=== PATIENT | female | born 1935 | race Caucasian/White ===

== ENCOUNTER 2023-11-29 16:11 | Emergency (ER) | payer SELFPAY ==
[2023-06-18 16:56] VITALS: BMI 18.7
[2023-11-29 16:14] VITALS: BP 171/89; PULSE 82; RESP 20; TEMP 36.7; O2SAT 99; BMI 20.9
--- NOTE | 2023-11-29 16:18 | ED.GENADULT ---
HPI - General Adult General Chief complaint: Trauma Stated complaint: GLF,hit head on eliquis Time Seen by Provider: 11/29/23 16:17 Source: patient, family and EMS Mode of arrival: EMS Limitations: no limitations History of Present Illness HPI narrative: Patient is an 88-year-old female. She is on anticoagulation. She arrived for evaluation of a fall and a head injury. Patient stated that she was taking a step backwards and she did not realize that there was an extra step there and so she fell backwards and hit her head. No loss of consciousness. She did sustain a wound her head that was covered by EMS. She reports right-sided paraspinal neck pain but no midline pain. She did not arrive in a C-collar on a backboard. No hip pain. She is discomfort to her right thumb. No shoulder pain. No chest, abdomen discomfort or shortness of breath. Related Data Allergies Allergy/AdvReac Type Severity Reaction Status Date / Time No Known Drug Allergies Allergy Verified 11/29/23 17:20 Review of Systems Review of Systems ROS Unobtainable: All systems reviewed & are unremarkable except as noted in HPI and below Exam Initial Vital Signs Initial Vital Signs: Vital Signs Temperature 98.1 F 11/29/23 16:14 Pulse Rate 82 11/29/23 16:14 Respiratory Rate 20 11/29/23 16:14 Blood Pressure 171/89 H 11/29/23 16:14 Pulse Oximetry 99 11/29/23 16:14 Oxygen Delivery Method Room Air 11/29/23 16:14 [facility] Head: laceration (2 cm scalp laceration right occipital region) Face and sinus: normal facial exam Chest Chest: No crepitus and No tenderness Resp Effort & Inspection: normal respiratory effort Auscultation: clear to auscultation bilaterally Cardio Rate: regular rate Rhythm: regular rhythm GI Inspection: normal to inspection and non-distended Back/Spine/Pelvis Cervical Spine: No cervical spinal tenderness Neuro General: patient alert, patient awake, patient oriented x3 and moves all extremities Extrem Other: Discomfort with palpation of the right thumb with bruising around the area. Pelvis stable. Procedures Laceration Repair Laceration 1: Site: scalp Side (If applicable): right Size (cm): 2 Description: stellate Depth: simple, single layer Local Anesthetic: lidocaine 1% and with epi Amount of anesthesia used (mL): 6 Pre-repair: wound explored and irrigated extensively Skin layer closed with: nylon Skin layer suture size: 3-0 Number of sutures: 4 Technique: simple, interrupted Course Orders Ordered: ED Orders 11/29/23 16:17 CT cervical spine wo con Stat CT head/brain wo con Stat XR hand RT min 3V Stat Vital Signs Vital signs: Vital Signs - 8 hr 11/29/23 16:14 11/29/23 16:22 11/29/23 16:34 Temperature 98.1 F Temperature [1612] 98.1 F Pulse Rate 82 74 Pulse Rate [1612] 78 Respiratory Rate 20 14 Respiratory Rate [1612] 16 Blood Pressure 171/89 H Blood Pressure [1612] 171/89 H Pulse Oximetry 99 98 Pulse Oximetry [1612] 98 Oxygen Delivery Method Room Air Room Air Oxygen Delivery Method [1612] Room Air 11/29/23 16:39 11/29/23 16:39 Temperature Temperature [1612] Pulse Rate 78 Pulse Rate [1612] Respiratory Rate Respiratory Rate [1612] Blood Pressure 162/84 H Blood Pressure [1612] Pulse Oximetry 98 Pulse Oximetry [1612] Oxygen Delivery Method Oxygen Delivery Method [1612] Medical Decision Making Imaging Data CT scan - head: Radiologist's Impression: PROCEDURE: CT HEAD/BRAIN WO CON INDICATIONS: fall on thinners TECHNIQUE: Noncontrast 4.5 mm thick angled axial sections acquired from the foramen magnum to the vertex, with coronal and sagittal reformats. For radiation dose reduction, the following was used: automated exposure control, adjustment of mA and/or kV according to patient size. COMPARISON: CT, CT HEAD/BRAIN WO CON, 06/17/2023, 12:08. FINDINGS: Image quality: Diagnostic. CSF spaces: Basal cisterns are patent. No extra-axial fluid collections. The ventricles are symmetric in size and shape. Brain: No intracranial bleeds or masses. There is cerebral volume loss for age, with resultant ventricular and sulcal prominence. There are periventricular and deep white matter chronic small vessel ischemic changes. 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 Skull and face: Calvarium and visualized facial bones appear intact, without suspicious lesions. Right posterior scalp hematoma. Sinuses: Visualized sinuses and mastoids are clear. IMPRESSION: 1. No acute intracranial process. 2. Moderate atrophy and chronic microvascular ischemic changes. CT - cervical spine: Radiologist's Impression: PROCEDURE: CT CERVICAL SPINE WO CON INDICATIONS: R paraspinal cervical pain after fall TECHNIQUE: Noncontrast 3 mm thick sections acquired from the skull base to the T4 level. Sagittal and coronal reformats were then constructed. For radiation dose reduction, the following was used: automated exposure control, adjustment of mA and/or kV according to patient size. COMPARISON: None. FINDINGS: Image quality: Excellent. Bones: No fractures or dislocations. Visualized superior ribs are intact. Multilevel degenerative changes. There is versus of cervical curvature. Soft tissues: Prevertebral soft tissues are normal in thickness. No paravertebral hematomas. No apical pneumothoraces. IMPRESSION: Degenerative changes without visualized fracture. Extremity x-ray #1: Radiologist's Impression: PROCEDURE: XR HAND RT MIN 3V INDICATIONS: Right thumb pain after fall TECHNIQUE: 3 views of the hand(s) acquired. COMPARISON: None. FINDINGS: Bones: Diffuse osteopenia. Severe polyarticular background degenerative changes are noted in the right wrist and hand most prominent in the 2nd metacarpophalangeal joint, triscaphe joint, 1st carpometacarpal joint, and the distal and proximal interphalangeal joints of the 2nd through 5th fingers as well as the interphalangeal joint of the thumb. No definite acute fractures or dislocations. Carpal bones are normally aligned. No suspicious bony lesions. Soft tissues: No suspicious soft tissue calcifications. IMPRESSION: Right hand without definite fracture. Normal alignment. Background severe polyarticular degenerative changes of the right hand and wrist. If there is persistent clinical concern for occult fracture given adequate mechanism of injury, consider repeat imaging in 10-14 days. [facility] Narrative Medical decision making narrative: Patient does have a scalp laceration that was closed as described above. Head CT cervical spine CT and right hand x-ray are unremarkable. Patient reports no other injuries from the event no other injuries were found on the exam. She was alert and oriented x3. Will discharge patient home with care instructions and return precautions. Both her and her family expressed understanding and agreement with plan. Discharge Plan Departure Patient Disposition: Home Clinical Impression: Laceration of scalp, Contusion of right thumb Instructions: DI for Laceration Repair of the Scalp Activity Restrictions/Additional Instructions: You can shower like normal however be very careful with showering around the area where the stitches are located. I would not be surprised that there is some oozing from the area however if it does start to bleed you do need to be re-evaluated here in the ER. The stitches do need to be removed in 7-10 days. This can be done at the walk-in clinic or your primary doctor. Return to the emergency department for new or worsening symptoms. Stand Alone Forms: Patient Portal/API
[2023-11-29 16:22] VITALS: BP 171/89; PULSE 78; RESP 16; TEMP 36.7; O2SAT 98
[2023-11-29 16:34] VITALS: PULSE 74; RESP 14; O2SAT 98
[2023-11-29 16:39] VITALS: BP 162/84; PULSE 78; O2SAT 98
--- NOTE | 2023-11-29 17:06 | PC.NURSE ---
at bedside with Dr. Estes. cleansed and sutured her scalp.large amount of bleeding. controlled with pressure dressing and kerlix. 3 sutures . large hematoma. cleansed hair.
[2023-11-29] MEDS: BACITRACIN OINT 0.9 GM PCKT 1 APPLIC TOP (17:57)
--- NOTE | 2023-11-29 18:17 | DI.RAD.S_ITS ---
PROCEDURE: XR FEMUR RT MIN 2V INDICATIONS: pain after fall TECHNIQUE: 3 views of the femur were acquired. COMPARISON: None. FINDINGS: Bones: No fractures or dislocations. No suspicious bony lesions. Severe arthritic change is present the right hip. Subchondral sclerosis as well as slight appearance of flattening of the femoral head is present. Soft tissues: No suspicious soft tissue calcifications or masses. 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 No visualized acute fracture or dislocation. However, if clinical concern and/or pain persist, short interval imaging followup in 7-10 days is recommended, as occult injury cannot be definitively excluded. Dictated by: Neyda Angulo M.D. on 11/29/2023 at 19:11 Approved by: Neyda Angulo M.D. on 11/29/2023 at 19:11
== END 2023-11-29 19:30 | disposition home or self-care (01) ==
PROVIDERS: Emergency Provider Emergency Medicine
DX: S01.01XA Laceration without foreign body of scalp, initial encounter (principal); S60.011A Contusion of right thumb without damage to nail, initial encounter; M54.2 Cervicalgia; W18.30XA Fall on same level, unspecified, initial encounter; Z79.01 Long term (current) use of anticoagulants
CPT/HCPCS: 12001; 70450; 72125; 73130; 73552; 99284